=== PATIENT | female | born 1970 | race Caucasian/White ===

== ENCOUNTER 2018-11-18 08:45 | Day surgery (SDC) | payer OTHER ==
[~2018-11-18 08:45] MED LIST: AZIT500 PO; Augmentin 875-1 EACH PO; Mucinex600 MG PO; Norco 5-325 Ta1 EACH PO; ONDA4ODT MM; PROM25 PO; RXPROCODSY PO
[2018-12-12] MEDS ORDERED: Advil100 MG PO (10:01)
== END 2018-11-18 22:58 | disposition home or self-care (01) ==
LOC: MOI US 08:45
DX: C50.912 Malignant neoplasm of unspecified site of left female breast (principal); Z17.0 Estrogen receptor positive status [ER+]; R92.8 Other abnormal and inconclusive findings on diagnostic imaging of breast
CPT/HCPCS: 19083; 77065; 88305; 88360; A4648; G0279

== ENCOUNTER 2018-12-14 09:00 | Day surgery (SDC) | payer OTHER ==
[~2018-12-14 09:00] MED LIST changes: +Advil100 MG PO
--- NOTE | 2018-12-14 09:41 | NUR ---
History, Chart, Medications and Allergies reviewed before start of procedure. Lungs clear T/O to Auscultation. Patient confirms NPO status and agrees with scheduled surgery. Pre-Op teaching done. Pt verbalizes understanding.
--- NOTE | 2018-12-14 14:22 | NUR ---
Discharge instructions reviewed with patient. Patient verbalizes understanding. Copy given to patient to take home. Patient States Post-Procedure ride home has been arranged. Discharged via wheelchair to private car for ride home.
== END 2018-12-14 23:04 | disposition home or self-care (01) ==
LOC: ORSCMMR 09:00 → ORD 10:30 → ORSCMMR 10:30
PROVIDERS: Surgery
PROC: B5131ZA Fluoroscopy of Right Jugular Veins using Low Osmolar Contrast, Guidance (ICD-10-PCS; principal; 2018-12-14 10:30)
PROC: 05HM33Z Insertion of Infusion Device into Right Internal Jugular Vein, Percutaneous Approach (ICD-10-PCS; principal; 2018-12-14 10:30)
DX: C50.812 Malignant neoplasm of overlapping sites of left female breast (principal)
CPT/HCPCS: 77001; A9270-GY; C1788; J0690; J1100; J1642; J2250; J2405; J2704; J7120

== ENCOUNTER 2019-02-06 16:45 | Emergency (ER) | payer OTHER ==
[~2019-02-06] VITALS: Ht 170.2 cm; Wt 83.9 kg
== END 2019-02-06 17:15 | disposition left against medical advice (07) ==
LOC: ER 16:45
DX: Z53.21 Procedure and treatment not carried out due to patient leaving prior to being seen by health care provider (principal); R50.9 Fever, unspecified

== ENCOUNTER → 2019-02-08 | Outpatient (CLI) | payer OTHER | END | disposition home or self-care (01) | LOC: PLD 08:23 → LAB SHORT 08:23 | DX: L98.6 Other infiltrative disorders of the skin and subcutaneous tissue (principal) | CPT/HCPCS: 88305 ==

== ENCOUNTER 2019-05-26 08:30 | Day surgery (SDC) | payer OTHER ==
[~2019-05-26] VITALS: Ht 170.2 cm; Wt 84.0 kg
[~2019-05-26 08:30] MED LIST changes: +ACET325 PO; +GABA300 PO
--- NOTE | 2019-05-26 10:25 | NUR ---
Ambulatory in Day Surgery. Surgical site prepped with 2% Chlorhexidine cloth wipe. History, Chart, Medications and Allergies reviewed before start of procedure.Lungs clear T/O to Auscultation. Pre-Op teaching done. Pt verbalizes understanding. Patient confirms NPO status and agrees with scheduled surgery. Patient States Post-Procedure ride home has been arranged. Patient reports completing Chlorhexadine shower X2 prior to admission to hospital.
--- NOTE | 2019-05-26 17:31 | NUR ---
Patient up to Ambulate independently. Gait steady. Discharge instructions reviewed with patient. Patient verbalizes understanding. Copy given to patient to take home. Dressing to procedure site clean, dry, intact with no visible drainage, swelling, erythema or bruising noted. Patient States Post-Procedure ride home has been arranged. Discharged via wheelchair to private car for ride home.
== END 2019-05-26 17:34 | disposition home or self-care (01) ==
LOC: NM 08:30 → ORSCMMR 08:30 → NM 09:30
PROVIDERS: Surgery
PROC: 0HBU0ZZ Excision of Left Breast, Open Approach (ICD-10-PCS; principal; 2019-05-26 10:45)
PROC: 07B60ZX Excision of Left Axillary Lymphatic, Open Approach, Diagnostic (ICD-10-PCS; principal; 2019-05-26 10:45)
DX: C50.812 Malignant neoplasm of overlapping sites of left female breast (principal); C77.3 Secondary and unspecified malignant neoplasm of axilla and upper limb lymph nodes
CPT/HCPCS: 78195; 88307; A9270-GY; A9520; J0690; J1100; J2250; J2405; J2704; J2765; J3010; J7120; Q9968

== ENCOUNTER 2023-02-26 07:45 | Day surgery (SDC) | payer BC ==
[~2023-02-26] VITALS: Ht 170.2 cm; Wt 78.0 kg
[2023-02-26] MEDS ORDERED: Prinivil10 MG PO (08:37)
[2023-02-26] MEDS ORDERED: MELO7.5 PO (08:37)
[2023-02-26] MEDS ORDERED: TAMO10 PO (08:38)
--- NOTE | 2023-02-26 09:46 | NUR ---
02/26/23 0946 Barbara Putnam 20ML OF ROPIVACAINE 0.5% MIXED AND VERIFIED WITH 0.1ML OF EPI (1MG/ML) TO MAKE ROPIVACAINE 0.5% WITH EPI 1:200,000 FOR INJECTION AT OPSITE BY DR ROBLES. 1MG OF EPI (1MG/ML) ADDED TO FIRST BAG OF LACTATED RINGER TO BE USED FOR IRRIGATION AT THE OPSITE BY DR ROBLES.
[2023-02-26 11:01] VITALS: BP 136/77
--- NOTE | 2023-02-26 11:03 | NUR ---
02/26/23 1103 Malka Stewart PATIENT MOM AND DAD AT BEDSIDE. PATIENT EATING TALKING WITH PARENTS. POLAR PACK ON LEFT KNEE. TOLERATING FOOD WELL. CALL LIGHT IN REACH.
== END 2023-02-26 11:55 | disposition home or self-care (01) ==
LOC: ORSCSDS 07:45
PROVIDERS: Orthopaedic Surgery
PROC: 0SBD4ZZ Excision of Left Knee Joint, Percutaneous Endoscopic Approach (ICD-10-PCS; principal; 2023-02-26 09:00)
DX: S83.232A Complex tear of medial meniscus, current injury, left knee, initial encounter (principal); M94.262 Chondromalacia, left knee; M23.42 Loose body in knee, left knee; I12.9 Hypertensive chronic kidney disease with stage 1 through stage 4 chronic kidney disease, or unspecified chronic kidney disease; N18.9 Chronic kidney disease, unspecified; Z79.899 Other long term (current) drug therapy; Z85.3 Personal history of malignant neoplasm of breast
CPT/HCPCS: A9270; J0171; J0690; J1100; J1885; J2250; J2405; J2704; J2795; J3010; J7120